=== PATIENT | female | born 2000 | race Caucasian/White ===

== ENCOUNTER 2024-05-28 19:31 | Emergency (ER) | payer SELFPAY | END 2024-05-28 21:00 | disposition home or self-care (01) | LOC: JP.ED 19:31 | DX: S06.0X0A Concussion without loss of consciousness, initial encounter (principal); W01.198A Fall on same level from slipping, tripping and stumbling with subsequent striking against other object, initial encounter; Y93.89 Activity, other specified | CPT/HCPCS: 99282; 99283 ==

== ENCOUNTER 2024-05-30 15:00 | Emergency (ER) | payer OTHER ==
[2024-05-30] MEDS: Ketorolac 30 MG/ML SDV IM ONE (15:55)
[2024-05-30] MEDS: Cyclobenzaprine 10 MG Tab PO ONE (15:55)
== END 2024-05-30 16:52 | disposition home or self-care (01) ==
LOC: JP.ED 15:00
DX: M25.512 Pain in left shoulder (principal); M54.50 Low back pain, unspecified; Z90.49 Acquired absence of other specified parts of digestive tract; V48.0XXA Car driver injured in noncollision transport accident in nontraffic accident, initial encounter; Y93.89 Activity, other specified
CPT/HCPCS: 96372; 99282; 99283; A9270-GY; J1885